=== PATIENT | male | born 1950 | race Two or more races ===

== ENCOUNTER 2021-08-01 11:10 | Emergency (ER) | payer SELFPAY ==
[~2021-08-01] VITALS: Ht 157.5 cm; Wt 72.6 kg
[2021-08-01 11:40] VITALS: BP 147/93
[2021-08-01] MEDS ORDERED: LIDOCAINE 1% HCL (LOCAL ANESTH.) INJ 20ML MDV ID ONE (12:00)
[2021-08-01] MEDS ORDERED: NEOMYCIN-BACITRACIN-POLYM UNITDOSE PKG TOP OINT TOP ONE (13:15)
[2021-08-01] MEDS ORDERED: NEOMYCIN-BACITRACIN-POLYM 15GM TOP OINT TOP ONE (13:30)
== END 2021-08-01 13:31 | disposition home or self-care (01) ==
LOC: ER 11:10
DX: S61.211A Laceration without foreign body of left index finger without damage to nail, initial encounter (principal); W26.8XXA Contact with other sharp object(s), not elsewhere classified, initial encounter; Y93.89 Activity, other specified; Y92.89 Other specified places as the place of occurrence of the external cause; Y99.8 Other external cause status
CPT/HCPCS: 12002; 73130; 99283; J2001

== ENCOUNTER 2021-08-11 13:24 | Emergency (ER) | payer SELFPAY ==
[~2021-08-11] VITALS: Ht 165.1 cm; Wt 77.1 kg
[2021-08-11 15:45] VITALS: BP 129/86
== END 2021-08-11 16:28 | disposition home or self-care (01) ==
LOC: ER 13:24
DX: S61.211D Laceration without foreign body of left index finger without damage to nail, subsequent encounter (principal); X58.XXXD Exposure to other specified factors, subsequent encounter